=== PATIENT | female | born 1995 ===

== ENCOUNTER 2018-12-11 17:58 | Emergency (ER) | payer SELFPAY ==
[2018-12-11 18:15] VITALS: RESP 18; TEMP 100.5; O2SAT 100
[2018-12-11 18:20] VITALS: BMI 20.9
[2018-12-11 18:46] LABS: INFLUENZA A B NEGATIVE FOR FLU A/B (NEGATIVE)
[2018-12-11] MEDS ORDERED: Dexamethasone 20 mg / 5 ml Inj IM STA (18:48)
--- NOTE | 2018-12-11 19:49 | ED PDOC ---
Arrival/HPI - General Chief Complaint: Flu-like Symptoms Time Seen by Provider: 12/11/18 18:19 Historian: Patient - History of Present Illness Narrative History of Present Illness (Text): 12/11/18 19:42 23yo female with no pmhx who present with complaint of sore throat, fever, chills, non productive cough, bodyaches x 4days. States she took Advil at 1200 today. Denies neck pain, nausea, abdominal pain, nuchal ridigity, drooling, hoarseness, sick contact, any other complaint. Past Medical History - Provider Review Nursing Documentation Reviewed: Yes - Hematological/Oncological Hx Anemia: Yes - Psychiatric Hx Substance Use: No - Anesthesia Hx Anesthesia: No Hx Anesthesia Reactions: No Hx Malignant Hyperthermia: No Family/Social History - Physician Review Nursing Documentation Reviewed: Yes Family/Social History: Unknown Family HX Smoking Status: Never Smoked Hx Alcohol Use: No Hx Substance Use: No Allergies/Home Meds Allergies/Adverse Reactions: Allergies No Known Allergies Allergy (Verified 12/11/18 18:20) Review of Systems - Physician Review All systems were reviewed & negative as marked: Yes - Review of Systems Constitutional: Fevers Eyes: Normal ENT: Sore Throat Respiratory: Cough Cardiovascular: Normal Gastrointestinal: Normal Genitourinary Female: Normal Musculoskeletal: Normal Skin: Normal Neurological: Normal Endocrine: Normal Hemo/Lymphatic: Normal Psychiatric: Normal Physical Exam Vital Signs Reviewed: Yes Vital Signs Temp Pulse Resp BP Pulse Ox 12/11/18 18:14 100.5 F H 116 H 18 112/72 100 Temperature: Febrile Blood Pressure: Normal Pulse: Tachycardic Respiratory Rate: Normal Appearance: Positive for: Well-Appearing, Non-Toxic, Comfortable Pain Distress: None Mental Status: Positive for: Alert and Oriented X 3 - Systems Exam Head: Present: Atraumatic, Normocephalic Pupils: Present: PERRL Extroacular Muscles: Present: EOMI Conjunctiva: Present: Normal Mouth: Present: Moist Mucous Membranes Pharnyx: Present: ERYTHEMA, TONSILS ENLARGED. No: EXUDATE, Peritonsilar Swelling, Uvular Deviation, Muffled/Hoarse Voice, Strider, Soft Palate/Uvular Edema Neck: Present: Normal Range of Motion Respiratory/Chest: Present: Clear to Auscultation, Good Air Exchange. No: Respiratory Distress, Accessory Muscle Use, Wheezes, Decreased Breath Sounds, Rales, Retracting, Rhonchi Cardiovascular: Present: Regular Rate and Rhythm, Normal S1, S2. No: Murmurs Abdomen: No: Tenderness, Distention, Peritoneal Signs Back: Present: Normal Inspection Upper Extremity: Present: Normal Inspection. No: Cyanosis, Edema Lower Extremity: Present: Normal Inspection. No: Edema Neurological: Present: GCS=15, CN II-XII Intact, Speech Normal Skin: Present: Warm, Dry, Normal Color. No: Rashes Psychiatric: Present: Alert, Oriented x 3, Normal Insight, Normal Concentration Medical Decision Making ED Course and Treatment: 12/11/18 23:39 23yo female who present with stated history. she was tachy and febrile on presentation. Her VS improved in ED with antipyretics. she was noted to have peritonsillar swelling and pharyngeal erythema. Rapid flu/strep both negative CXR NAD Pt likely have viral URI. she was treated with Penicllin VK and Decadron in ED and DC home with same abx and antitussive. Referred to her PMD. - RAD Interpretation Radiology Orders: 12/11/18 18:48 CHEST TWO VIEWS (PA/LAT) [RAD] Stat - Medication Orders Current Medication Orders: Discontinued Medications Dexamethasone (Decadron Inj) 10 mg IM STAT STA Stop: 12/11/18 18:49 Last Admin: 12/11/18 19:26 Dose: 10 mg IM Administration Charges Document 12/11/18 19:26 EQ (Rec: 12/11/18 19:26 EQ [id number]) Injection Site MAR Injection Site Left Deltoid Charges for Administration # of IM Administrations 1 Ibuprofen (Motrin Tab) 600 mg PO STAT STA Stop: 12/11/18 18:41 Last Admin: 12/11/18 19:27 Dose: 600 mg Penicillin V Potassium (Penicillin Vk Tab) 500 mg PO STAT STA; Protocol Stop: 12/11/18 18:50 Last Admin: 12/11/18 19:26 Dose: 500 mg Disposition/Present on Arrival - Present on Arrival Any Indicators Present on Arrival: No History of DVT/PE: No History of Uncontrolled Diabetes: No Urinary Catheter: No History of Decub. Ulcer: No History Surgical Site Infection Following: None - Disposition Have Diagnosis and Disposition been Completed?: Yes Diagnosis: Pharyngitis, Viral URI Disposition: HOME/ ROUTINE Disposition Time: 19:55 Patient Plan: Discharge Condition: STABLE Discharge Instructions (ExitCare): Viral Pharyngitis, Viral Upper Respiratory Infection, Adult (DC) Additional Instructions: Drink plenty of fluid and rest Follow up with your Doctor Return to ED for any new or worsening symptoms Prescriptions: Benzonatate [Tessalon Perle] 100 mg PO TID #20 capsule Penicillin VK [Penicillin VK Tab] 500 mg PO BID #14 tab Referrals: FAMILY PROVIDER,NO [Primary Care Provider] - Follow up with primary Mari Carter MD [Medical Doctor] - Follow up with primary Forms: [facility] (Lao), WORK NOTE
[2018-12-11 20:24] VITALS: BP 130/80; PULSE 100
--- NOTE | 2018-12-12 09:12 | RAD ---
Date of service: 12/11/2018 HISTORY: cough COMPARISON: No prior. TECHNIQUE: Chest PA and lateral FINDINGS: LUNGS: No active pulmonary disease. PLEURA: No significant pleural effusion identified. No pneumothorax apparent. CARDIOVASCULAR: No aortic atherosclerotic calcification present. Normal cardiac size. No pulmonary vascular congestion. OSSEOUS STRUCTURES: No significant abnormalities. VISUALIZED UPPER ABDOMEN: Normal. OTHER FINDINGS: None. IMPRESSION: No active disease.
== END 2018-12-11 20:33 | disposition home or self-care (01) ==
LOC: ED 17:58
DX: J02.8 Acute pharyngitis due to other specified organisms (principal)
CPT/HCPCS: 71046; 81025; 87070; 87430; 87804; 96372; 99283; J1100